=== PATIENT | female | born 1995 | race Caucasian/White ===

== ENCOUNTER 2016-10-04 02:07 | Emergency (ER) | payer OTHER ==
[~2016-10-04] VITALS: Ht 175.3 cm; Wt 71.0 kg
[2016-10-04 02:16] VITALS: TEMP 37; Ht 175.3 cm; Wt 71.0 kg
[2016-10-04 02:22] VITALS: O2SAT 100
[2016-10-04] MEDS: DiphenhydrAMINE HCL 50 MG/ML VIAL IV STA (02:25)
[2016-10-04] MEDS: DEXAMETHASONE SOD INJ 10 MG/ML VIAL IV ONE (02:25)
[2016-10-04] MEDS: RANITIDINE HCL 50 MG/100 ML D5W IV STA (02:25)
[2016-10-04 02:29] LABS: BASO % 0.9 %; BASO ABS # 0.07 K/uL (0-0.2); COMPLETE YES; EOS % 1.5 %; HEMATOCRIT 39.8 % (37-47); IG% 0.1 %; LYMPH % 35.2 %; LYMPH ABS # 2.89 K/uL (1.2-3.4); MEAN CELL VOLUME 86.9 fL (80-100); MEAN CORPUSCULAR HGB CONC 33.4 g/dl (32-36); MEAN PLATELET VOLUME 10.7 fL (7.4-10.4); MONO % 10.1 %; NEUT % 52.2 %; PLATELET COUNT 298 K/uL (130-400); RED BLOOD COUNT 4.58 M/uL (4.2-5.4)
[2016-10-04] MEDS ORDERED: SERT-234 PO (02:37)
[2016-10-04 02:50] LABS: ALT/SGPT 21 U/L (12-78); AST/SGOT 14 U/L (15-37); BLOOD UREA NITROGEN 12 mg/dl (7-18); BUN/CREATININE RATIO 17.3 (10-20); CALCIUM 8.9 mg/dl (8.5-10.1); CARBON DIOXIDE 27 mmol/L (21-32); CHLORIDE 106 mmol/L (98-107); GLUCOSE 92 mg/dl (70-99); POTASSIUM 3.2 mmol/L (3.5-5.1); SODIUM 138 mmol/L (136-145)
[2016-10-04 02:51] LABS: PREG INTERNAL NEGATIVE QC NEG CLEAR BACKGROUND; PREG INTERNAL POSITIVE QC POS CONTROL LINE
[2016-10-04 02:55] LABS: ALKALINE PHOSPHATASE 73 U/L (45-117)
[2016-10-04] MEDS: LIDOCAINE HCL 2% VISC SOLN 20 ML UDC PO STA (03:15)
[2016-10-04] MEDS: ALUMINUM/MAGNESIUM SUSP 30 ML UDC PO STA (03:15)
[2016-10-04] MEDS: POTASSIUM CHLORIDE 10 MEQ TABCR PO STA (03:54)
--- NOTE | 2016-10-04 04:42 | EMERGENCY ROOM VISIT NOTE ---
History First contact with patient: 02:10 Chief Complaint: CHEST PAIN Stated Complaint: TIGHT CHEST,SWOLLEN TONGUE,TROUBLE BREATHING Nursing Triage Summary: chest pain, swollen tongue, slightly SOB starting approx 30 min ago History of Present Illness The patient is a 21 year old female who presents to the Emergency Room with complaints of sudden onset of chest pain, swollen tongue and throat discomfort for the past half hour. 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 No new foods soaps or detergents. She's not had any nuts at all. Patient states she feels as if her throat is swollen. Patient denies rash, facial swelling, abdominal pain, fever, chills. She is tolerate by mouth fluids and food. Review of Systems See HPI for pertinent positives & negatives. A total of 10 systems reviewed and were otherwise negative. Past Medical/Surgical History None Social History Smoking Status: Never Smoker Smokeless Tobacco Use: No Drug Use: none Occupation Status: [employer] student Current/Historical Medications Scheduled Sertraline (Zoloft), 100 MG PO DAILY Physical Exam Vital Signs Date Time Temp Pulse Resp B/P (MAP) Pulse Ox O2 Delivery O2 Flow Rate FiO2 10/04/16 03:15 73 18 117/74 98 10/04/16 02:23 82 10/04/16 02:22 100 Room Air 10/04/16 02:22 100 Room Air 10/04/16 02:16 37.0 90 18 129/96 97 Room Air Physical Exam VITALS: Vitals are noted on the nurse's note and reviewed by myself. Vital signs stable. GENERAL: Pleasant female speaking in full sentences, in no acute distress, nondiaphoretic, well-developed well-nourished. SKIN: The skin was without rashes, erythema, edema, or bruising. There is no tenting of the skin. Capillary reflex less than 2 seconds. HEAD: Normocephalic atraumatic. Face with no edema present EARS: External auditory canals clear, tympanic membranes pearly teixeira without erythema or effusion bilaterally. EYES: Pupils equal round and reactive to light and accommodation. Conjunctivae without injection, sclerae without icterus. Extraocular movements intact. NOSE: Patent, turbinates without inflammation or discharge. MOUTH: Mucous membranes moist. Pharynx without erythema or exudate. Uvula midline. Airway patent. Tongue does not deviate. No tongue swelling or lip swelling NECK: Supple without nuchal rigidity. No lymphadenopathy. No thyromegaly. Cervical spine is nontender. No JVD. HEART: Regular rate and rhythm without murmurs gallops or rubs. LUNGS: Clear to auscultation bilaterally without wheezes, rales or rhonchi. No dullness to percussion. No retractions or accessory muscle use. ABDOMEN: Positive bowel sounds x 4. Normal tympanic percussion. Soft, nontender, without masses or organomegaly. Bey sign negative. No guarding or rebound tenderness. MUSCULOSKELETAL: No muscle atrophy, erythema, or edema noted. NEURO: Patient was alert and oriented to person place and time. Normal sensation to light and sharp touch. No focal neurological deficits. Medical Decision & Procedures Laboratory Results 10/04/16 02:15 Red Blood Count 4.58, Mean Corpuscular Volume 86.9, Mean Corpuscular Hemoglobin 29.0, Mean Corpuscular Hemoglobin Concent 33.4, Mean Platelet Volume 10.7, Neutrophils (%) (Auto) 52.2, Lymphocytes (%) (Auto) 35.2, Monocytes (%) (Auto) 10.1, Eosinophils (%) (Auto) 1.5, Basophils (%) (Auto) 0.9, Neutrophils # (Auto ) 4.28, Lymphocytes # (Auto) 2.89, Monocytes # (Auto) 0.83, Eosinophils # (Auto ) 0.12, Basophils # (Auto) 0.07 10/04/16 02:15 Test 10/04/16 02:15 White Blood Count 8.20 K/uL (4.8-10.8) Red Blood Count 4.58 M/uL (4.2-5.4) Hemoglobin 13.3 g/dL (12.0-16.0) Hematocrit 39.8 % (37-47) Mean Corpuscular Volume 86.9 fL (80-100) Mean Corpuscular Hemoglobin 29.0 pg (25-34) Mean Corpuscular Hemoglobin Concent 33.4 g/dl (32-36) Platelet Count 298 K/uL (130-400) Mean Platelet Volume 10.7 fL (7.4-10.4) Neutrophils (%) (Auto) 52.2 % Lymphocytes (%) (Auto) 35.2 % Monocytes (%) (Auto) 10.1 % Eosinophils (%) (Auto) 1.5 % Basophils (%) (Auto) 0.9 % Neutrophils # (Auto) 4.28 K/uL (1.4-6.5) Lymphocytes # (Auto) 2.89 K/uL (1.2-3.4) Monocytes # (Auto) 0.83 K/uL (0.11-0.59) Eosinophils # (Auto) 0.12 K/uL (0-0.5) Basophils # (Auto) 0.07 K/uL (0-0.2) RDW Standard Deviation 40.0 fL (36.4-46.3) RDW Coefficient of Variation 12.5 % (11.5-14.5) Immature Granulocyte % (Auto) 0.1 % Immature Granulocyte # (Auto) 0.01 K/uL (0.00-0.02) Anion Gap 5.0 mmol/L (3-11) Est Creatinine Clear Calc Drug Dose 134.0 ml/min Estimated GFR () 144.6 Estimated GFR (Non- 124.7 BUN/Creatinine Ratio 17.3 (10-20) Calcium Level 8.9 mg/dl (8.5-10.1) Total Bilirubin 0.6 mg/dl (0.2-1) Direct Bilirubin 0.1 mg/dl (0-0.2) Aspartate Amino Transf (AST/SGOT) 14 U/L (15-37) Alanine Aminotransferase (ALT/SGPT) 21 U/L (12-78) Alkaline Phosphatase 73 U/L (45-117) Troponin I < 0.015 ng/ml (0-0.045) Total Protein 7.3 gm/dl (6.4-8.2) Albumin 3.7 gm/dl (3.4-5.0) Lipase 147 U/L (73-393) Human Chorionic Gonadotropin, Qual NEG (NEG) Medications Administered Medications (Trade) Dose Ordered Sig/Shefali Route Start Time Stop Time Status Last Admin Dose Admin Dexamethasone Sodium Phosphate (Decadron Inj) 10 mg NOW ONCE IV 10/04/16 02:30 10/04/16 02:31 DC 10/04/16 02:25 10 MG Ranitidine HCl (zANTac IV) 50 mg NOW STAT IV 10/04/16 02:18 10/04/16 02:19 DC 10/04/16 02:25 50 MG Diphenhydramine HCl (Benadryl Inj) 50 mg NOW STAT IV 10/04/16 02:18 10/04/16 02:19 DC 10/04/16 02:25 50 MG Lidocaine HCl (Viscous Lidocaine 2% Soln) 10 ml NOW STAT PO 10/04/16 03:10 10/04/16 03:11 DC 10/04/16 03:15 10 ML Al Hydroxide/Mg Hydroxide (Maalox Susp) 30 ml NOW STAT PO 10/04/16 03:10 10/04/16 03:11 DC 10/04/16 03:15 30 ML Potassium Chloride (Klor-Con M10) 30 meq NOW STAT PO 10/04/16 03:24 10/04/16 03:25 DC 10/04/16 03:54 30 MEQ ED Course Prior records/ancillary studies reviewed. Triage Nursing notes reviewe. The patient's history was concerning for possible allergic reaction. Differential diagnosis: Etiologies such as allergic reaction, anaphylaxis, urticaria, Hobson-Joel syndrome, toxic epidermal necrolysis, erythema multiforme, cellulitis, as well as others were entertained. Physical examination: As above. ER treatment provided: Continuous cardiac monitoring Benadryl 50 mg IV Zantac 50 mg IV Decadron 10 mg IV GI cocktail On reassessment the patient felt better. Diagnostic interpretation by me: EKG: Normal sinus, incomplete right bundle-branch block, no acute ST-T wave changes. Impression incomplete right bundle branch block interpreted by myself Chest x-ray with no acute consolidation, pneumothorax or free air per my interpretation Labs: Stable H&H. Negative troponin It appears the patient had an allergic reaction. The above treatment did well to reverse the symptoms. After prolonged monitoring and frequent reassessments the patient did very well and symptoms resolved. The patient was counseled on the spectrum of this disease process and told to avoid potential triggers. I gave my usual and customary discussion regarding this issue. By the evaluation outlined above emergent etiologies such as recurring anaphylaxis, anaphylatic shock, airway compromise, Hobson-Joel syndrome, toxic epidermal necrolysis, erythema multiforme, infectious etiologies, as well as others were deemed relatively unlikely. The pt informed about the findings as listed above. All questions were answered and pleased with the treatment. Return instructions were outlined and the patient was discharged in stable condition. Outpatient prescription management: EpiPen prednisone Referral: The patient was referred back to primary care physician for follow-up in 2-3 days for a recheck of the current condition. or The patient was referred to Allergy/Immunology for further evaluation. Case reviewed with my attending. Medical Decision As above Medication Reconcilliation Current Medication List: was personally reviewed by me Blood Pressure Screening Patient's blood pressure: Normal blood pressure Impression Primary Impression: Allergic reaction Departure Information Dispostion Home / Self-Care Condition GOOD Forms Call Back Authorization, HOME CARE DOCUMENTATION FORM, IMPORTANT VISIT INFORMATION Patient Instructions [facility] Additional Instructions DO NOT drive, drink alcohol, operate machinery, or perform dangerous activities today. You were given medications in the ER that can affect your ability to safely function or operate a vehicle. Epi-Pen: Use one injection as instructed for severe allergic reactions associated with shortness of breath, difficulty breathing, or throat or tongue swelling. If you use this injection call 911 or proceed immediately to the nearest Emergency Room. Prednisone 50mg: Once daily until the prescription is finished. It is best to take this earlier in the day as some patients note occasional difficulty falling asleep when taken in the late evening. Diphenhydramine(Benadryl) 25mg: use 25 to 50 mg every six hours for swelling, itching, or hives. This medication is sedating and will cause drowsiness. Avoid alcohol, operating machinery or dangerous equipment, working on ladders or roofs, DRIVING, or situations where being under the influence may be dangerous. Zantac 75: Take two pills twice a day along with Benadryl as needed for swelling , itching, or hives. Most people know this for its affect on the stomach, but it also acts similar to, but less potent than Benadryl for allergic reactions. Both the Benadryl and the Zantac are available [id number]. Continue current medications. Return to the emergency department for worsening of your rash, swelling of your face, lips, tongue, or throat, difficulty breathing, vomiting, or as needed. Follow-up with your primary care physician in 2 to 3 days for a recheck of your current condition. Problem Qualifiers Primary Impression: Allergic reaction Encounter type: initial encounter Qualified Codes: T78.40XA - Allergy, unspecified, initial encounter
[2016-10-04] MEDS ORDERED: PRED50TA PO (04:50)
[2016-10-04 04:52] VITALS: BP 102/66; PULSE 58; O2SAT 98
--- NOTE | 2016-10-04 07:33 | DIAGNOSTIC IMAGING REPORT ---
CHEST ONE VIEW PORTABLE HISTORY: Atypical CHEST PAIN COMPARISON: None. FINDINGS: The lungs are clear. Cardiac silhouette is normal in size. No pleural effusions. No pneumothorax. IMPRESSION: No acute process. Electronically signed by: Jasper Canales M.D. 10/04/2016 7:31 AM Dictated Date/Time: 10/04/2016 7:30 AM
== END 2016-10-04 05:05 | disposition home or self-care (01) ==
LOC: C.EDB 02:08 → C.EDA 05:05
DX: T78.40XA Allergy, unspecified, initial encounter (principal); X58.XXXA Exposure to other specified factors, initial encounter